=== PATIENT | female | born 1950 ===

== ENCOUNTER → 2018-10-13 | Emergency (ER) | payer OTHER ==
[~2018-10-13] VITALS: Ht 167.6 cm; Wt 70.3 kg
[~2018-10-13] MED LIST: CATAFLAM50 MG PO
== END | disposition home or self-care (01) ==
LOC: ER 15:41
DX: S91.322A Laceration with foreign body, left foot, initial encounter (principal); S00.83XA Contusion of other part of head, initial encounter; W26.8XXA Contact with other sharp object(s), not elsewhere classified, initial encounter; Y93.01 Activity, walking, marching and hiking; Y92.480 Sidewalk as the place of occurrence of the external cause; Y99.8 Other external cause status